=== PATIENT | female | born 1940 | race African-American/Black ===

== ENCOUNTER → 2021-11-05 | Outpatient (CLI) | payer MEDICARE, MEDICAID | END | disposition home or self-care (01) | LOC: CT 08:18 | PROVIDERS: ATTEND Internal Medicine Endocrinology, Diabetes & Metabolism | DX: K80.20 Calculus of gallbladder without cholecystitis without obstruction (principal); R19.00 Intra-abdominal and pelvic swelling, mass and lump, unspecified site; E27.8 Other specified disorders of adrenal gland; J98.11 Atelectasis; I70.0 Atherosclerosis of aorta; M47.9 Spondylosis, unspecified | CPT/HCPCS: 74176 ==

== ENCOUNTER 2024-04-25 13:43 | Emergency (ER) | payer MEDICARE, MEDICAID ==
[~2024-04-25] VITALS: Ht 165.1 cm; Wt 74.8 kg
[2024-04-25 13:46] VITALS: BP 109/49; PULSE 98; RESP 18; TEMP 98.3; O2SAT 99
[2024-04-25 15:24] LABS: CHLORIDE 111 mEq/L (98-107); POTASSIUM 3.6 mEq/L (3.5-5.1); SODIUM 143 mEq/L (136-145)
[2024-04-25 15:25] LABS: BASOPHILS % 0.4 % (0.0-2.0); CALCIUM 9.7 mg/dL (8.7-10.4); CARBON DIOXIDE 24 mEq/L (21-32); EOSINOPHILS % 0.1 % (0.0-5.0); HEMATOCRIT. 39.9 % (36.0-48.0); HEMOGLOBIN. 12.9 g/dL (12.0-16.0); LYMPHOCYTES % 26.1 % (20.0-50.0); MEAN CORPUSCULAR HEMOGLOBIN 27.4 pg (28.0-32.0); MEAN CORPUSCULAR HGB CONC 32.3 g/dL (31.0-37.0); MEAN CORPUSCULAR VOLUME 84.9 fL (81.0-99.0); MEAN PLATELET VOLUME 10.2 fl (7.4-10.4); MONOCYTES % 10.3 % (2.0-8.0); NEUTROPHILS % 63.1 % (40.0-76.0); PLATELET 100 x1000/uL (130-400); RED CELL DISTRIBUTION WIDTH 15.5 % (11.6-14.6); WHITE BLOOD COUNT 2.8 x1000/uL (4.5-11.0)
[2024-04-25 15:27] LABS: PROTHROMBIN TIME 10.9 sec (9.6-11.0)
[2024-04-25 15:30] LABS: CREATININE 1.5 mg/dL (0.6-1.0); GLUCOSE 99 mg/dL (70-105); UREA NITROGEN BLOOD 23 mg/dL (9-23)
[2024-04-25 15:32] LABS: PHOSPHORUS 2.4 mg/dL (2.5-4.9)
[2024-04-25 15:37] LABS: TROPONIN I HIGH SENSITIVITY 35 ng/L (3.0-34)
[2024-04-25] MEDS ORDERED: PHOS250T5 MT (16:32)
[2024-04-25] MEDS ORDERED: MULT-1146 MT (16:32)
[2024-04-25] MEDS ORDERED: MAGN400C MT (16:32)
== END 2024-04-25 17:01 | disposition home or self-care (01) ==
LOC: ER 13:58 → EDBEDREQ 14:52 → ER 17:01
DX: R53.1 Weakness (principal); E83.39 Other disorders of phosphorus metabolism; E83.42 Hypomagnesemia; E11.9 Type 2 diabetes mellitus without complications; Z95.0 Presence of cardiac pacemaker
CPT/HCPCS: 36415; 80048; 83735; 83880; 84100; 84484; 85025; 99283